=== PATIENT | female | born 1960 | race Caucasian/White ===

== ENCOUNTER 2017-06-27 21:23 | Emergency (ER) | payer SELFPAY ==
--- NOTE | 2017-06-27 21:35 | Emergency Department Record ---
History of Present Illness - General Stated complaint: INJURY TO LEFT HAND Source: Patient Mode of Arrival: Ambulatory Limitations: No limitations - History of Present Illness Initial comments: 57 yo female presents with a left hand injury. Her grand daughter dropped a rock on the hand. She is left handed. She has pain and swelling. Intact skin. She removed her ring already. Complaint: Extremity pain, Joint pain -: Hour(s) (6) Location: Left History of Same: No -: Yes Arthralgia Radiation: Distal Quality: Aching Consistency: Constant Improves with: Immobilization Worsens with: Palpation Associated Symptoms: Arthralgias - Related Data Home Medications Medication Instructions Recorded Confirmed Last Taken Aspirin 81 mg PO DAILY 06/27/17 06/27/17 06/27/17 Atorvastatin Calcium [Lipitor] 10 mg PO DAILY 06/27/17 06/27/17 06/27/17 Benzonatate [Tessalon] 1 cap PO Q8H PRN 06/27/17 06/27/17 06/27/17 Cholecalciferol (Vitamin D3) 5,000 unit PO DAILY 06/27/17 06/27/17 06/27/17 [Vitamin D3] Donepezil HCl [Aricept] 5 mg PO DAILY 06/27/17 06/27/17 06/27/17 Esomeprazole Magnesium 40 mg PO BID 06/27/17 06/27/17 06/27/17 Fluticasone/Salmeterol [Advair Hfa 12 gm IH BID 06/27/17 06/27/17 06/27/17 115-21 Mcg Inhaler] Hydrochlorothiazide 25 mg PO DAILY 06/27/17 06/27/17 06/27/17 Hydrocodone/Acetaminophen [[place] 1 tab PO Q8H PRN 06/27/17 06/27/17 06/27/17 5mg/325mg] Ipratropium [place] [Atrovent Hfa] 2 puff IH BID 06/27/17 06/27/17 06/27/17 Levothyroxine Sodium [Synthroid] 50 mcg PO DAILY 06/27/17 06/27/17 06/27/17 Lisinopril 20 mg PO DAILY 06/27/17 06/27/17 06/27/17 Memantine HCl [Namenda] 10 mg PO BID 06/27/17 06/27/17 06/27/17 Multivit-Min/Iron/Folic/Lutein 1 each PO DAILY 06/27/17 06/27/17 06/27/17 [Centrum Silver Women Tablet] Naproxen 500 mg PO BID 06/27/17 06/27/17 06/27/17 Propranolol HCl [Propranolol HCl 60 mg PO BID 06/27/17 06/27/17 06/27/17 ER] Remifemin 1 tab PO BID 06/27/17 06/27/17 Unknown Allergies Allergy/AdvReac Type Severity Reaction Status Date / Time No Known Drug Allergies Allergy Verified 06/27/17 21:29 Review of Systems Constitutional: Denies: Chills, Fever, Malaise, Weakness Eyes: Denies: Eye discharge ENT: Denies: Congestion, Throat pain Respiratory: Denies: Cough Cardiovascular: Denies: Chest pain Endocrine: Denies: Fatigue Gastrointestinal: Denies: Abdominal pain, Diarrhea, Nausea, Vomiting Genitourinary: Denies: Dysuria Musculoskeletal: Reports: As per HPI, Arthralgia Skin: Reports: As per HPI, Bruising Neurological: Denies: Headache, Numbness, Tingling, Tremors, Weakness Psychiatric: Denies: Anxiety Hematological/Lymphatic: Denies: Blood Clots, Easy bleeding, Easy bruising, Swollen glands Physical Exam - General General Appearance: Alert, Oriented x3, Cooperative, No acute distress Limitations: No limitations - Head Head exam: Atraumatic, Normal inspection - Eye Eye exam: Normal appearance, PERRL Pupils: Normal accommodation - ENT ENT exam: Normal exam, Mucous membranes moist, Normal external ear exam, Normal orophraynx, TM's normal bilaterally Ear exam: Normal external inspection. negative: External canal tenderness Nasal Exam: Normal inspection. negative: Discharge, Sinus tenderness Mouth exam: Normal external inspection, Tongue normal Teeth exam: Normal inspection. negative: Dental caries Throat exam: Normal inspection. negative: Tonsillar erythema, Tonsillar exudate - Neck Neck exam: Normal inspection - Cardiovascular Cardiovascular Exam: Regular rate, Normal rhythm, Normal heart sounds Peripheral Pulses: 2+: Radial (L) - Rectal Rectal exam: Deferred - exam: Deferred - Extremities Extremities exam: Joint swelling, Normal capillary refill, Tenderness. negative : Normal inspection Image of Hand: 1 - swelling, brusing, tenderness, intact skin, full ROM but pain with ROM, no finger swelling - Neurological Neurological exam: Alert, Normal gait, Oriented X3. negative: Motor sensory deficit - Psychiatric Psychiatric exam: Normal affect, Normal mood - Skin Skin exam: Other (bruising) Course - Reevaluation(s) Reevaluation #1: L hand XR ordered 06/27/17 21:34 Reevaluation #2: The XR was read as no acute fracture. Arthritic changes present. 06/27/17 21:57 She was splinted for comfort and support until pain and swelling are improved 06/27/17 22:00 Disposition Disposition: Discharge Clinical Impression: Contusion of hand, left Qualifiers: Encounter type: initial encounter Qualified Code(s): S60.222A - Contusion of left hand, initial encounter Disposition: Home, Self-Care Condition: (1) Good Instructions: Contusion in Adults (ED) Additional Instructions: Ice and elevate every 6 hours to minimize swelling Follow up recheck with your doctor in the next week if pain continues Use the splint for support and comfort until pain free Forms: Patient Portal Access Time of Disposition: 21:57 Quality - Quality Measures Quality Measures: N/A - Blood Pressure Screening Does Patient Have Any of the Following: No Blood Pressure Classification: Hypertensive Reading Systolic Measurement: 154 Diastolic Measurement: 72 Screening for High Blood Pressure: < Pre-Hypertensive BP, F/U Documented > [ [id number]] Pre-Hypertensive Follow-up Interventions: Referral to alternative/primary care provider.
--- NOTE | 2017-06-28 13:41 | RADIOLOGY REPORT ---
EXAM: LEFT HAND, FOUR VIEWS HISTORY: DROPPED ROCK ON LEFT HAND. TECHNIQUE: Four views of the left hand were obtained. Comparison: None. Encounter: Initial. FINDINGS: No acute fracture or dislocation. Mild osteoarthritic change of the DIP's. IMPRESSION: NO ACUTE OSSEOUS ABNORMALITY OF THE LEFT HAND. JOB NUMBER: [id number] MTDD
== END 2017-06-27 22:16 | disposition home or self-care (01) ==
LOC: ER 21:23
DX: S60.222A Contusion of left hand, initial encounter (principal); W22.8XXA Striking against or struck by other objects, initial encounter
CPT/HCPCS: 99283